=== PATIENT | female | born 1990 ===

== ENCOUNTER 2024-12-22 00:29 | Observation (INO) | payer SELFPAY ==
[~2024-12-22] VITALS: Ht 165.1 cm; Wt 108.9 kg
[2024-12-22] MEDS: hydrOXYzine 25 MG TAB or CAP PO ONE (01:40)
[2024-12-22] MEDS: TERBUTALINE SULFATE 1 MG/ML 1ML VIAL SC SCH (01:46)
[2024-12-22] MEDS: LACTATED RINGER'S 1,000 ML IV ONE (01:57)
[2024-12-22] MEDS: NIFEdipine 10 MG CAP PO ONE (02:34)
[2024-12-22] MEDS: LACTATED RINGER'S 1,000 ML IV SCH (02:38)
--- NOTE | 2024-12-22 02:48 | DVH ---
Examination: OBLTD CLINICAL INDICATION: CERVICAL LENGTH . COMPARISON: None. TECHNIQUE: Transabdominal OB ultrasound was performed. FINDINGS: Real time ultrasound examination of pelvis shows normal single intra-uterine . Placenta is p osterior in position. No placenta previa or placental abruption. cardiac activity is well appr eciated. Fetus is in cephalic position. Good movement seen. ALPA: 21.67 cm. heart rate: 150 b/min. Cervical length is adequate measuring 42 mm. IMPRESSION: 1. Single live intra-uterine . 2. Placenta is posterior in position. No placenta previa or placental abruption. Electronically Signed 12/22/2024 02:48 Cyrus Robin
[2024-12-22] MEDS ORDERED: PREN-96 PO (04:19)
--- NOTE | 2024-12-22 07:56 | DVHDS2 ---
Physician Discharge Progress N Final Diagnosis: IUP at 28 weeks Secondary Diagnosis: UC's Resolved No PTL Operations or Procedures: Operations or Procedures NST Other Interventions Other Interventions Ultrasound revealing 4cm cervical length ALPA WNL Commentary: Commentary Category 1 tracing UC's resolved with 1 dose of terbutaline, 10 mg Nifedipine po 50 mg Vistaril and IV hydration. Pt stated brior to discharge that pain has resolved. Condition on Discharge: Stable Disposition: Home Discharge Instructions: Diet: Regular Activity: No Restrictions, As Tolerated Follow Up/Referral: FOLLOW UP WITH PRIMARY OB PROVIDER TODAY 12/22/24. Medications: CONTINUE TAKING MEDICATION PREVIOUSLY PRESCRIBED BY DR SERVIN. Follow Up Care: Primary Care Provider: Outside provider in [facility] Discharge Statement: "Patient was advised to return to the ER or call 911 if any headaches, dizziness, shortness of breath, chest pain, abdominal pain, bleeding, fevers, or worsening of medical condition. Patient was counseled about treatment plan, medications, possible side effects, patientverbalized understanding. All questions were answered to the best of my ability. This discharge took greater then 30 minutes in planning, reviewing documentation, counseling the patient, and discussing with other team members." Discharge Care Plan Instructions Discharged home Follow up with primary B provider with in 1-2 days PTL precuations given Visit Coding OBGYN Date of Service: Dec 22, 2024 Billing Provider: AILEEN MENCHACA CNM [employer] Common Visit Codes: [id number] INP/OBS CARE (HIGH) AILEEN MENCHACA CNM Dec 22, 2024 07:56
== END 2024-12-22 04:45 | disposition home or self-care (01) ==
LOC: LDRP 00:29
PROVIDERS: ADMIT Obstetrics & Gynecology; ATTEND Obstetrics & Gynecology
DX: O26.892 Other specified pregnancy related conditions, second trimester (principal); R10.9 Unspecified abdominal pain; Z3A.28 28 weeks gestation of pregnancy; Z79.899 Other long term (current) drug therapy
CPT/HCPCS: 59025; 76815; 81002; 94760; 96360; 96361; 96372; G0378; J3105